=== PATIENT | male | born 1955 | race African-American/Black ===

== ENCOUNTER → 2018-05-10 | Outpatient (CLI) | payer OTHER ==
[~2018-05-10] VITALS: Ht 172.7 cm; Wt 79.4 kg
[~2018-05-10] MED LIST: HYDROCODON-ACE1 EAC7 PO; IBUPROFEN 400400 M2 PO
--- NOTE | ~2018-05-10 | HPC ---
[facility] [place] [address] [address] [place] [address] PAIN MANAGEMENT CONSULTATION Name: FREDIS COYLE [id number] Admission: 05/10/18 Attend Phys: Julito Velez DO Discharge: Date of : 55 Report #: [id number] THIS REPORT FOR: //name// CC: [facility] physician/PCP Julito Velez DATE OF SERVICE: 05/10/2018 CHIEF COMPLAINT: Left upper extremity pain. HISTORY OF PRESENT ILLNESS: As you know, the patient is a 62-year-old male who reports a 6-year history of upper extremity pain. He states that his pain began on the right, underwent cervical epidural injections x 3, which provided some benefit. His symptoms then began on the left side. The patient has undergone 1 cervical [address] injection with [address] Da Magana at the [place] [facility]. Apparently, this did not provide much in the way of improvement. The patient was sent for MRI, which does show some changes at the C4-C5 level, which shows neural foraminal compromise, worse on the right than the left. Otherwise, relatively normal MRI. The patient was referred to our service to discuss options for treatment for cervical radiculopathy. The patient describes the pain as steady. Indicates pain is shooting, crushing, pulling, numbness and tingling, squeezing in sensation. Places current pain score at 8/10, daily average at 8/10, worst the pain has been is 10/10. The patient states his pain is exacerbated with lifting anything, lying on his left side or utilizing his left upper extremity. He states the only thing that improves his symptoms is "holding his arm up high." He has been referred to our service to discuss options for cervical radiculopathy treatment. PAST MEDICAL HISTORY: 1. Emotional problems. 2. Uncontrolled hypertension. PAST SURGICAL HISTORY: None. SOCIAL HISTORY: The patient denies tobacco, alcohol, IV or illicit drug use. 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 He is working, not receiving workmen's compensation. He is not on disability income in regards to pain. He is not in litigation in regards to his symptoms. REVIEW OF SYSTEMS: Positive for depression, left arm pain. All other review of systems is negative per 12-point review of systems other than those listed in history of present illness. Pain impact score 59/70, severe interference of daily activities secondary to pain. [facility] [address] [place] [address] PAIN MANAGEMENT CONSULTATION Name: SAJAN ANTONFREDIS MARCE Room #: REG LUCIA Guzman#: [id number] Admission: 05/10/18 Attend Phys: Julito Velez DO Discharge: Date of : 55 Report #: [id number] ALLERGIES: No known drug allergies. CURRENT MEDICATIONS: None reported. IMAGING: MRI of cervical spine shows alignment has changed since 2014 more kyphotic centered at the C4-C5 level. There is anterior epidural defects at C2-C3, C3-C4, C4-C5, C5-C6, C6-C7 due to osteophyte disk complexes. A larger single lesion is asymmetric at the C6-C7 level. They have gotten larger. Noted C4-C5 disk reduction, both foraminal compromise, worse on the right. There is a C5 compression deformity, has gotten worse since 2015. PHYSICAL EXAMINATION: VITAL SIGNS: Blood pressure 156/101, pulse 65, respiratory rate 16 and unlabored. The patient is 100% on room air. Height 5 feet 8 inches tall, weight 175 pounds, BMI calculated 26.6. GENERAL: Well-developed, well-nourished, well-hydrated 62-year-old male, appears stated age. He is in mild distress secondary to pain, placing current pain score at 8/10. HEENT: Normocephalic, atraumatic. Pupils equal, round, reactive to light. Extraocular muscles are intact. NEUROLOGIC: Speech fluent. The patient deemed a fair historian. LUNGS: Clear. No wheeze, rhonchi or rales. CARDIOVASCULAR: Regular. No appreciable gallop or rub. ABDOMEN: Soft, nontender, nondistended. EXTREMITIES: Show no clubbing, no cyanosis, no edema. MUSCULOSKELETAL: Upper extremity strength is symmetrical. Muscle bulk and tone appears symmetrical grossly when viewing left to right side. He has a negative Spurling's test on the left and right. Movement of the upper arm causes intensification of pain, distribution is in the proximal and distal portion of the arm all the way into the hand. Deep tendinous reflexes are symmetrical, diminished bilaterally at biceps, brachioradialis and triceps. Cervical provocation testing is met with no significant changes in pain. ASSESSMENT: 1. Cervical radiculopathy. 2. Displacement of cervical intervertebral disk with radiculopathy. 3. Cervical spondylosis with radiculopathy. 4. Neural foraminal stenosis of the cervical spine. 5. Chronic intractable pain. PLAN: 1. The patient has been referred to our service. Discussed options for treatments for cervical radiculopathy. The patient at this point has no cervical pain at all. Spurling's test is actually negative. There are what appears to be cervical radicular symptoms radiating into the left upper [address] [address] PAIN MANAGEMENT CONSULTATION Name: FREDIS COYLE Room #: REG CLFaye Rapp#: [id number] Admission: 05/10/18 Attend Phys: Julito Velez DO Discharge: Date of : 55 Report #: [id number] extremity given the distribution of symptoms. We discussed the findings on his MRI, which does show some neural foraminal compromise. There is likely the source of the patient's symptoms. The patient and I discussed the options for treatment here today. These were the following treatment options proposed. The patient and I discussed physical therapy, stretching exercises and traction techniques. We discussed medication management with neuropathic medications that [facility]. We discussed cervical epidural injection for which the patient was referred to our service and ultimately surgical options. The patient chose to begin with a cervical epidural injection, but indicates he cannot undergo the procedure today. He requested that we provide him "with opioid." The patient and I had a long discussion today about the use of opioids and medication management for chronic pain. I do not feel opioids are an appropriate treatment option and will not be provided long-term. We will give the patient a short dosing of medication for the next week as we await the epidural injection on Wednesday. I would not recommend continuation of opioid medications as they are not indicated for radicular symptoms. We did discuss more appropriate medications. He states he has been on all of them and they have not worked. If this is the case, then surgical options may be his only recourse. 2. The patient will see us back in clinic in 1 week. We will perform a cervical epidural injection per the request of the referring physician. We will determine if his symptoms are amenable to such procedures. If he is not noting good and prolonged benefit with this epidural injection, surgical referral would be recommended. 3. The patient was provided a one-time dose of hydrocodone 5/325 one tab p.o. q.6h. p.r.n. for pain, I have given the patient #30 tablets, advised the patient to take the medication only when pain is intolerable. He is not to drive or operate heavy equipment while on this medication. He is to watch for side effects with its use. 4. We will see the patient back in followup visit in 1 week for cervical epidural injection per the referring physician's request. 5. We wish to thank you for the opportunity to see the patient in consultation. We will keep you apprised of his response to treatment as we address cervical radicular symptoms, suspected to be affecting the left upper extremity. Again, we wish to thank you for the opportunity to see the patient in consultation. <ELECTRONICALLY SIGNED> By: Julito Velez DO 05/12/18 0817 [id number] 1808 Julito Velez DO /nt
[2018-05-10 09:18] VITALS: BP 156/101
== END ==
LOC: PAIN 06:54
DX: M47.22 Other spondylosis with radiculopathy, cervical region (principal); M50.123 Cervical disc disorder at C6-C7 level with radiculopathy; M48.02 Spinal stenosis, cervical region; G89.4 Chronic pain syndrome

== ENCOUNTER → 2018-06-14 | Outpatient (CLI) | payer OTHER ==
[~2018-06-14] VITALS: Ht 172.7 cm; Wt 80.7 kg
--- NOTE | ~2018-06-14 | HPC ---
[facility] [address] [address] PAIN MANAGEMENT CONSULTATION Name: FREDIS COYLE Room #: REG LUCIA Tamela.#: [id number] Admission: 06/14/18 Attend Phys: Julito Velez DO Discharge: Date of : 55 Report #: [id number] THIS REPORT FOR: //name// CC: FAM physician/PCP Julito Magana REFERRING PHYSICIAN: Dr. Da Magana. CHIEF COMPLAINT: Neck pain, left upper extremity pain and paresthesias. HISTORY OF PRESENT ILLNESS: As you know, the patient is a 62-year-old male with a 6-year history of left upper extremity pain and chronic neck pain. He has had complete resolution of his right upper extremity pain and right neck pain with previous epidural injection. He returns today with a significant improvement in his left upper extremity pain as well. He continues to experience pain with increasing activity. He returns today to begin the process of preauthorization to undergo next in the series of cervical epidural injections. He indicates that his pain level today is at a level of 4/10, states the pain is exacerbated with activities and heavy lifting and exercise, improves with holding his arm up in the air. This and a cervical epidural injection provided improvement. He returns today in followup visit to begin the authorization process to undergo next in the series of cervical epidural injections. ALLERGIES: No known drug allergies. CURRENT MEDICATIONS: Ibuprofen, hydrocodone. SOCIAL HISTORY: The patient denies tobacco, alcohol, IV or illicit drug use. 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 He is working, not receiving workmen's compensation, unaccompanied today. IMAGING: No new imaging available. PHYSICAL EXAMINATION: VITAL SIGNS: Blood pressure 155/107, pulse 66, respiratory rate 14 and unlabored. The patient is 98% on room air. Height 5 feet 8 inches tall, weight 178 pounds, BMI calculated 27.1. GENERAL: Well-developed, well-nourished, well-hydrated, 62-year-old male. He appears his stated age, placing current pain score around 4/10. HEENT: Normocephalic, atraumatic. Pupils equal, round, reactive to light. Extraocular muscles are intact. Sclerae are nonicteric without injection. NEUROLOGIC: Cranial nerves 2-12 grossly intact. Speech remains fluent. EXTREMITIES: Show no clubbing, no cyanosis, no edema. MUSCULOSKELETAL: Upper extremity strength appears symmetrical 5/5. Slight giveaway strength noted with biceps flexion on the left when compared to the [facility] [address] [place] [address] PAIN MANAGEMENT CONSULTATION Name: FREDIS COYLE Room #: REG [facility]#: [id number] Admission: 06/14/18 Attend Phys: Julito Velez DO Discharge: Date of : 55 Report #: [id number] right. This is due to pain generation. Deep tendon reflexes are diminished bilaterally in the upper extremities and biceps, brachialis and triceps. Cervical provocation testing is met with increasing pain. Spurling's test positive left. Muscle bulk and tone appears equal and symmetrical in comparing left upper extremity to right. ASSESSMENT: 1. Cervical radiculopathy. 2. Displacement of cervical intervertebral disk with radiculopathy. 3. Cervical spondylosis with radiculopathy. 4. Neural foraminal stenosis of the cervical spine. 5. Chronic intractable pain. PLAN: 1. The patient returns today in followup visit having noted complete resolution of his right upper extremity and right neck pain. He continues to experience a squeezing sensation in the left upper extremity, but this is improved from the previous epidural injection. He returns to begin the authorization process to undergo the next in the series of cervical epidural injections. He is attempting to avoid surgery, which has been advised by other physicians. He is hopeful that repeating epidural injection will improve his overall pain. We also discussed today about medication management changes. It appears the patient was on appropriate medication, but at doses that were subtherapeutic. We will discuss medication management again if necessary. He does wish to undergo epidural injection as quickly as possible. 2. The patient will return to our clinic next WednesdayJune 22 for a possible cervical epidural injection, we will begin the authorization process immediately. I have provided the patient with a release of work for next Wednesday to undergo the procedure and be able to go home after and rest and relax as we have noted that these injections tend to improve with decreasing activity postprocedure. We have made the patient an appointment, we will see him back at that time to undergo a cervical epidural injection. 3. No medication changes made at today's visit. The patient to continue current medical therapy as previously prescribed. 4. The patient will return to our clinic next Wednesday to undergo a cervical epidural injection under fluoroscopic guidance. <ELECTRONICALLY SIGNED> By: Julito Velez DO 06/21/18 1256 0822 0954 Julito Velez DO /nt
[2018-06-14 07:59] VITALS: BP 155/107
== END ==
LOC: PAIN 07:12
DX: M47.12 Other spondylosis with myelopathy, cervical region (principal); M50.10 Cervical disc disorder with radiculopathy, unspecified cervical region; M48.02 Spinal stenosis, cervical region; G89.4 Chronic pain syndrome; Z79.899 Other long term (current) drug therapy

== ENCOUNTER → 2018-06-28 | Outpatient (CLI) | payer OTHER ==
[~2018-06-28] VITALS: Ht 172.7 cm; Wt 80.9 kg
--- NOTE | ~2018-06-28 | HPC ---
[facility] [address] [address] [place] [address] PAIN MANAGEMENT CONSULTATION Name: FREDIS COYLE [facility] [id number] Admission: 06/28/18 Attend Phys: Julito Velez DO Discharge: Date of : 55 Report #: [id number] THIS REPORT FOR: //name// CC: [facility] physician/PCP Julito Magana MD DATE OF SERVICE: 06/28/2018 CHIEF COMPLAINT: Neck pain, left upper extremity pain and paresthesias. HISTORY OF PRESENT ILLNESS: As you know, the patient is a 62-year-old male with a 6-year history of left upper extremity pain with paresthesias and chronic neck pain. He had complete resolution of his right upper extremity pain with previous epidural injection. He returns today in followup visit requesting next in the series of epidural injections in hopes of improving pain further. He is placing his current pain score at 8/10. He returns to undergo second in the series of cervical epidural injections in hopes of pain improvement. The patient denies any new injury or trauma and no changes in medical history since our last visit. ALLERGIES: No known drug allergies. CURRENT MEDICATIONS: Ibuprofen and hydrocodone. SOCIAL HISTORY: The patient denies tobacco, alcohol, IV or illicit drug use. 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 He is working, not receiving workmen's compensation, unaccompanied today. IMAGING: No new imaging available. PHYSICAL EXAMINATION: VITAL SIGNS: Blood pressure 163/110, pulse is 68, respiratory rate 16 and unlabored. The patient is 98% on room air. Height 5 feet 8 inches tall, weight 178.4 pounds, BMI calculated 27. GENERAL: Well-developed, well-nourished, well-hydrated, 62-year-old male. He appears stated age, placing current pain score at 8/10. HEENT: Normocephalic, atraumatic. Pupils are equal, round, reactive to light. EXTREMITIES: Show no clubbing, no cyanosis, no edema. MUSCULOSKELETAL: Upper extremity strength appears equal and symmetrical 5/5. Slight giveaway strength noted with biceps flexion on left when compared to the right due to pain generation once again today. Deep tendinous reflexes are diminished bilaterally, but symmetrical at biceps, brachioradialis and triceps. Cervical provocation testing is met with increasing pain to the left. Spurling's test positive left. [facility] [address] [place] [address] PAIN MANAGEMENT CONSULTATION Name: SAJAN ANTONFREDIS ZHENG Room #: REG CLI Megan#: [id number] Admission: 06/28/18 Attend Phys: Julito Velez DO Discharge: Date of : 55 Report #: [id number] ASSESSMENT: 1. Cervical radiculopathy. 2. Displacement of cervical intervertebral disk with radiculopathy. 3. Cervical spondylosis with radiculopathy. 4. Neural foraminal stenosis of the cervical spine. 5. Essential hypertension. 6. Chronic intractable pain. PLAN: 1. The patient returns today in followup visit reporting pain score at 8/10. He has requested a repeat cervical epidural injection in hopes of building on success of previous intervention. The patient has been advised of the risks and the benefits of a second cervical epidural injection, states he understood and wished to proceed. 2. The patient's blood pressure noted to be elevated again today. Pressure today is 163/110. Previous blood pressure was 155/107. I have advised the patient to follow up with his PCP as quickly as possible and be initiated on an antihypertensive medication. The blood pressure that he has is not related to his ongoing pain issues. If this were the case, the patient's pulse rate, which would also be up and pulse last visit was 66, pulse today was 68, which would not correlate with a sympathetic outflow noted with acute pain issues. I believe that the patient will need initiation of antihypertensive medication to adjust for his dangerously elevated blood pressure, which is at 163/110 today. The patient needs to follow up with his PCP immediately. 3. We will see the patient back in followup visit on an as needed basis for the next in the series of cervical epidural injections and discuss other treatment options for cervical radiculopathy. PROCEDURE NOTE: DESCRIPTION OF PROCEDURE: DESCRIPTION OF PROCEDURE: Cervical epidural steroid injection under fluoroscopic guidance. After obtaining written consent, the patient was taken back to fluoroscopy suite, placed in a prone position with separate pillows under chest and forehead to decrease cervical lordosis. Skin overlying cervical area then prepped and draped in aseptic fashion. C7-T1 cervical interspace identified by AP fluoroscopy. Skin and subcutaneous tissue overlying target site injection anesthetized with 3 mL of 1% lidocaine. A 20-gauge 3-1/2 inch Tuohy needle advanced under fluoroscopic guidance towards the epidural space using a midline approach. Epidural space identified using loss of resistance to air technique. After negative aspiration for heme or cerebrospinal fluid, 1 mL of Omnipaque injected. A cervical epidurogram was [facility] [address] [place] [address] PAIN MANAGEMENT CONSULTATION Name: FREDIS COYLE Room #: REG LUCIA Guzman#: [id number] Admission: 06/28/18 Attend Phys: Julito Velez DO Discharge: Date of : 55 Report #: [id number] confirmed using both AP and lateral fluoroscopy. After negative aspiration for heme or cerebrospinal fluid, 5 mL of a solution containing 2 mL 40 mg per mL, 80 mg total triamcinolone, 3 mL lidocaine 1% injected slowly. Needle retracted long term, flushed with 1 mL of 1% lidocaine and removed. Sterile bandage placed over injection site. No new motor deficits present in the upper extremity following procedure. The patient tolerated procedure well, carefully escorted to recovery room in stable condition. No apparent complication. After meeting discharge criteria, the patient discharged home. <ELECTRONICALLY SIGNED> By: Julito Velez DO 06/29/18 1542 0815 0947 Julito Velez DO /nt
[2018-06-28 14:08] VITALS: BP 163/110
== END | disposition home or self-care (01) ==
LOC: PAIN 06-22 06:39
DX: M50.10 Cervical disc disorder with radiculopathy, unspecified cervical region (principal); M47.22 Other spondylosis with radiculopathy, cervical region; G89.29 Other chronic pain; M48.02 Spinal stenosis, cervical region; I10 Essential (primary) hypertension; Z79.891 Long term (current) use of opiate analgesic; Z98.890 Other specified postprocedural states

== ENCOUNTER 2018-08-11 11:12 | Emergency (ER) | payer OTHER ==
[~2018-08-11] VITALS: Ht 172.7 cm; Wt 78.9 kg
[2018-08-11 11:13] VITALS: BP 145/93
[2018-08-11] MEDS ORDERED: NORCO 5-325 TA1 EACH PO ×2 (11:47→12:03)
== END 2018-08-11 12:10 | disposition home or self-care (01) ==
LOC: ER 11:12
DX: M54.12 Radiculopathy, cervical region (principal); I10 Essential (primary) hypertension; G89.29 Other chronic pain; M79.602 Pain in left arm

== ENCOUNTER → 2018-09-14 | Outpatient (CLI) | payer OTHER ==
[~2018-09-14] VITALS: Ht 172.7 cm; Wt 80.4 kg
[~2018-09-14] MED LIST changes: +NORCO 5-325 TA1 EACH PO
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
[2018-09-14 08:29] VITALS: BP 161/98
== END ==
LOC: PAIN 08:14
DX: M47.22 Other spondylosis with radiculopathy, cervical region (principal); G89.4 Chronic pain syndrome; M48.02 Spinal stenosis, cervical region; I10 Essential (primary) hypertension

== ENCOUNTER → 2018-09-27 | Outpatient (CLI) | payer OTHER ==
[~2018-09-27] VITALS: Ht 172.7 cm; Wt 80.7 kg
[~2018-09-27] MED LIST changes: +NOHOMEMEDICATIONS
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
[2018-09-27 08:52] VITALS: BP 165/91
--- NOTE | 2018-09-27 09:10 | NUR ---
Pain Clinic Assessment: 1. History of Osteoarthritis: Not Applicable History of Rheumatoid Arthritis: Not Applicable 2. Height: 5 ft. 8 in. 172.7 cm. Weight: 177.8 lb. oz. 80.650 kg. Patient's BMI: 27.0 3. Vital Signs: BP: 165/91 Pulse: 66 Resp: 20 Temp: 02 Sat: 99 ECG Mon: 4. Pain Intensity: 9 5. Fall Risk: Dizziness: N Needs help standing or walking: N Fallen in the last 3 months: N Fall risk comments: 6. Patient on Blood Thinner: None 7. History of Hypertension: N 8. Opioid Therapy greater than 6 weeks: N Opiate Contract Signed: 9. Risk Assessment Tool Provided: LOW RISK 0/3 10. Functional Assessment Tool: 67/70 11. Recreational Drug Use: Past greater than 3 mos Drug Type: Tobacco Use: Never Smoker Tobacco Type: Amount or Packs/day: How Many Years: Alcohol Use: No Frequency: Quant:
== END | disposition home or self-care (01) ==
LOC: PAIN 07:22
DX: M50.10 Cervical disc disorder with radiculopathy, unspecified cervical region (principal); M47.22 Other spondylosis with radiculopathy, cervical region; M48.02 Spinal stenosis, cervical region; G89.29 Other chronic pain

== ENCOUNTER → 2019-05-31 | Outpatient (CLI) | payer OTHER ==
[~2019-05-31] VITALS: Ht 172.7 cm; Wt 79.7 kg
--- NOTE | ~2019-05-31 | HPC ---
[facility] [address] [place] [address] PAIN MANAGEMENT CONSULTATION Name: FERDIS COYLE Room #: REG LUCIA Tamela.#: [id number] Admission: 05/31/19 ������������������ Attend Phys: Julito Velez DO Discharge: ������������������ Date of : 55 Report #: [id number] THIS REPORT FOR: //name// CC: Dr. Clements [facility] physician/PCP Julito Magana MD DATE OF SERVICE: 05/31/2019 REFERRING PHYSICIANS: Dr. Da Magana at the [place] system and Dr. Clements at the [place] system. CHIEF COMPLAINT: Neck pain, left upper extremity pain and paresthesias. HISTORY OF PRESENT ILLNESS: As you know, the patient is a 63-year-old male with a 7-year history of neck pain, left upper extremity pain with paresthesias. He returns today in followup visit to undergo next in the series of cervical epidural injections. He has been advised by Neurosurgery with the [place] system that he will need to undergo surgery to correct his ongoing pain issues. The patient is hopeful to delay that surgical option if at all possible. He returns today in followup visit requesting to undergo cervical epidural injection to address neck pain, left upper extremity pain with paresthesias that he places pain level at 8/10. He indicates that his prior injections "were the most painful thing he has ever done." The patient does return today in followup visit stating his pain is intense enough that he is willing to undergo the procedure today. He returns with pain level of 8/10. He denies any changes in medical history other than progression of his neck and left upper extremity pain since our last visit. ALLERGIES: No known drug allergies. CURRENT MEDICATIONS: Listed as none. SOCIAL HISTORY: The patient denies tobacco, alcohol, IV or illicit drug use. He is employed, working, not receiving workmen's compensation, unaccompanied today. IMAGING: No new imaging available. PHYSICAL EXAMINATION: VITAL SIGNS: Blood pressure 144/96, pulse 61, respiratory rate 14 and unlabored. The patient is 100% on room air. Height 5 feet 8 inches tall, weight 175.6 pounds and BMI calculated 26.7. GENERAL: Well-developed, well-nourished, well-hydrated 63-year-old male appearing stated age. He is in no acute distress, awake, alert and oriented x [address] [address] PAIN MANAGEMENT CONSULTATION Name: FREDIS COYLE Room #: REG [facility].#: [id number] Admission: 05/31/19 ������������������ Attend Phys: Julito Velez DO Discharge: ������������������ Date of : 55 Report #: [id number] 3. Current pain score /10. HEENT: Normocephalic, atraumatic. Pupils equal, round and reactive to light. Extraocular muscles are intact. Sclerae nonicteric, without injection. EXTREMITIES: Show no clubbing, no cyanosis, no edema. MUSCULOSKELETAL: Upper extremity strength is symmetrical, though he does have some giveaway strength noted again today mainly with biceps flexion and abduction of the left shoulder. Deep tendon reflexes are diminished bilaterally, but symmetrical at biceps, brachioradialis and triceps. Spurling's test positive left. ASSESSMENT: 1. Cervical radiculopathy. 2. Displacement of a cervical intervertebral disk with radiculopathy. 3. Cervical spondylosis with radiculopathy. 4. Neural foraminal stenosis of the cervical spine. 5. Chronic intractable pain. PLAN: 1. The patient has returned today in followup visit to undergo next in the series of cervical epidural injections under fluoroscopic guidance. The patient receives benefit with cervical epidural injections, the most recent injection provided 80% improvement in overall pain lasting for 4 months, yet the patient indicates that these are "the most painful injections he has never undergone." Despite the fact that these are uncomfortable to undergo, he has returned to undergo next in the series of epidural injections as he is trying to decrease need for surgical options, which have been presented to the patient as a definitive treatment course. He returns today to undergo the procedure. The patient has been advised risks and benefits of a cervical epidural injection. These risks include but are not necessarily limited to bleeding, bruising, infection, worsening pain, no relief of pain, also risk of temporary or permanent muscle weakness, temporary or permanent nerve damage, possible paralysis, post-dural puncture headache and . The patient states understood and wished to proceed. 2. We will see the patient back in followup visit on an as needed basis for possible next in a series of cervical epidural injections. We recommend the patient follow up with his PCP in regards to any medication management if necessary. PROCEDURE NOTE DESCRIPTION OF PROCEDURE: C7-T1 cervical epidural steroid injection under fluoroscopic guidance. This is the first procedure of the second series that the patient is undergoing. After obtaining written consent, the patient was taken back to the fluoroscopy [address] [address] PAIN MANAGEMENT CONSULTATION Name: FREDIS COYLE Room #: WERNER Guzman#: [id number] Admission: 05/31/19 ������������������ Attend Phys: Julito Velez DO Discharge: ������������������ Date of : 55 Report #: [id number] suite and placed in a prone position with separate pillows under chest and forehead to decrease cervical lordosis. The skin overlying the cervical area was prepped and draped in an aseptic fashion. The C7-T1 vertebral interspace was identified by AP fluoroscopy. The skin and subcutaneous tissue overlying the target site of injection was anesthetized using 3 mL of 1% lidocaine. A 20-gauge 3.5 inch Tuohy needle was advanced under fluoroscopic guidance toward the epidural space using a left paramedian approach. The epidural space was identified using a loss of resistance to air technique. After negative aspiration for heme or cerebrospinal fluid, a total of 1 mL of Omnipaque was injected. A cervical epidurogram was confirmed using AP and oblique fluoroscopy. After negative aspiration for heme or cerebrospinal fluid, 5 mL of a solution containing 2 mL 40 mg/mL, 80 mg total triamcinolone along with 3 mL of lidocaine 1% was injected in increments. Contrast spread was noted from posterior epidural space. The needle was then retracted approximately care home and the needle track was flushed with 1 mL of 1% lidocaine. There were no apparent new sensory deficits in the upper extremities present following the procedure. A sterile bandage was placed over the injection site. The heart rate, pulse oximetry and blood pressure were continuously monitored after the procedure. There were no apparent complications. The patient tolerated the procedure well and was carefully escorted in the recovery room in stable condition. After meeting discharge criteria, the patient was discharged home. ��������������������������������������������� ���������������������������������������� By: ��������������������������������������������� [id number] [id number] Julito Velez DO /nt
[2019-05-31 11:18] VITALS: BP 144/96
--- NOTE | 2019-05-31 11:40 | NUR ---
Pain Clinic Assessment: 1. History of Osteoarthritis: Not Applicable History of Rheumatoid Arthritis: Not Applicable 2. Height: 5 ft. 8 in. 172.7 cm. Weight: 175.6 lb. oz. 79.652 kg. Patient's BMI: 26.7 3. Vital Signs: BP: 144/96 Pulse: 61 Resp: 14 Temp: 02 Sat: 100 ECG Mon: 4. Pain Intensity: 8 5. Fall Risk: Dizziness: N Needs help standing or walking: N Fallen in the last 3 months: N Fall risk comments: 6. Patient on Blood Thinner: None 7. History of Hypertension: N 8. Opioid Therapy greater than 6 weeks: N Opiate Contract Signed: 9. Risk Assessment Tool Provided: LOW RISK 0/3 10. Functional Assessment Tool: 67/70 11. Recreational Drug Use: Past greater than 3 mos Drug Type: Tobacco Use: Never Smoker Tobacco Type: Amount or Packs/day: How Many Years: Alcohol Use: No Frequency: Quant:
== END | disposition home or self-care (01) ==
LOC: PAIN 05-23 08:40
DX: M50.10 Cervical disc disorder with radiculopathy, unspecified cervical region (principal); M47.22 Other spondylosis with radiculopathy, cervical region; M48.02 Spinal stenosis, cervical region; G89.29 Other chronic pain; Z98.890 Other specified postprocedural states

== ENCOUNTER 2019-06-23 01:33 | Inpatient (IN) | payer OTHER ==
[2019-06-23] VITALS (7 sets, daily range): BP systolic 105–173; BP diastolic 62–114
[~2019-06-23] VITALS: Ht 175.3 cm; Wt 78.0 kg
[2019-06-23 02:37] LABS: HEMOGLOBIN 14.8 gm/dL (14.0-18.0); MCH 31.2 pg (26.0-34.0); MCHC 32.2 g/dL (28.0-37.0); MCV 96.9 fL (80.0-100.0); PLATELET COUNT 127 thou/uL (150-400); RBC 4.75 mil/uL (4.50-6.00); RDW 13.5 % (10.5-14.5); WBC 4.8 thou/uL (4.0-11.0)
[2019-06-23 02:40] LABS: ANION GAP 10 mmol/L (7-16); BUN 7 mg/dL (7-18); CALCIUM 8.4 mg/dL (8.5-10.1); CHLORIDE 108 mmol/L (98-107); CO2 26 mmol/L (21-32); CREATININE 0.8 mg/dL (0.7-1.3); GLUCOSE 129 mg/dL (74-106); POTASSIUM 3.5 mmol/L (3.5-5.1); SODIUM 144 mmol/L (136-145)
[2019-06-23 02:41] LABS: PROTIME 10.7 Seconds (9.3-11.4)
[2019-06-23 02:51] LABS: ALBUMIN 3.4 g/dL (3.4-5.0); MAGNESIUM 1.9 mg/dL (1.8-2.4); SGOT 28 U/L (15-37); SGPT 27 U/L (30-65); TOTAL BILIRUBIN 0.7 mg/dL (<0.1-1.0); TOTAL PROTEIN 6.7 g/dL (6.4-8.2); TROPONIN-I <0.06 ng/mL (<0.06)
[2019-06-23 03:07] LABS: ABSOLUTE NEUTROPHILS 1.9 thou/uL (1.4-8.2)
[2019-06-23 03:08] LABS: ANISOCYTOSIS 1+; PLATELET ESTIMATE DECREASED; POIKILOCYTOSIS 1+
[2019-06-23 06:42] LABS: CHOLESTEROL 179 mg/dL (<200); HDL CHOLESTEROL 101 mg/dL (>40); LDL CHOLESTEROL 58 mg/dL (<100); TC:HDL 1.8 Ratio (Not establshd); TRIGLYCERIDE 100 mg/dL (<150); VLDL 20 mg/dL (<40)
[2019-06-23 06:43] LABS: SERUM ASSESSMENT Clear
--- NOTE | 2019-06-23 07:29 | NUR ---
ADMIT:PT ADMITTED FROM ED WITH CHEST PAIN.ARRIVED TO UNIT VIA STRETCHER ACCOMPANIED BY HIS .PT IS A/OX4 IN A LOT OF DISTRESS.HYPERTENSIVE UPON ARRIVAL TO UNIT,HYDRALAZINE GIVEN PER ORDERS.RA W/O RESP DISTRESS.SINUS RHYTHM ON MONITOR.PT KEEPS HAVING SEVERE INTERMITTENT SHARP CHEST PAIN THAT DOES NOT RADIATES OR ACCOMPANIED BY ANY OTHER ISSUES.PT STATES PAIN COMES AND GOES.CTA W/CONTRAST ORDERED BY CERTIFIED PHLEBOTOMY TECHNICIAN.PT DENIES H/O OF CHEST PAIN BUT DO HAVE A VERY STRONG FAMILY HISTORY OF CAD.DENIES CURRENTLY TAKING ANY MEDICATION APART FROM STEROIDS INJECTIONS D/T PAIN IN HIS NECK AND LEFT ARM.IVF INFUSING.PT AND FAMILY ORIENTED TO UNIT AND UNIT ACTIVITIES.ASSESSMENT COMPLETED DOCUMENTED.PT DENIES ANY OTHER CONCERNS AT THIS TIME.PT NPO.
--- NOTE | 2019-06-23 08:59 | NUR ---
ASSUMED CARE AT 0830. SEE ASSESSMENT. HAVING INTERMITTENT MIDSTERNAL BRIEF SHARP PAIN, RESOLVES WITHIN A MINUTE WITH RELAXATION. AT BEDSIDE.
--- NOTE | 2019-06-23 11:09 | 2DMMODE ---
[facility] [address] [email or web address] [address] 2 D/M-MODE ECHOCARDIOGRAM Name: SAJAN FREDIS ANTON Room #: 218-P ADM IN M.R.#: [id number] Admission: 06/23/19 Attend Phys: Fabian Germain MD Discharge: Date of : 55 Report #: [id number] THIS REPORT FOR: //name// APPROVED REPORT Study performed: 06/23/2019 10:20:28 EXAM: Comprehensive 2D, Doppler, and color-flow Echocardiogram Patient Location: Bedside Room #: 218 Status: routine BSA: 1.94 HR: 69 bpm BP: 166/106 mmHg Rhythm: Sinus arrhythmia Other Information Study Quality: Good Indications Chest Pain HTN 2D Dimensions RVDd: 34.11 mm IVSd: 12.00 (7-11mm) LVOT Diam: 24.00 (18-24mm) LVDd: 48.00 mm PWd: 11.00 (7-11mm) Ascending Ao: 40.10 (22-36mm) LVDs: 29.00 (25-40mm) Aortic Root: 43.02 mm Volumes Left Atrial Volume (Systole) Single Plane 4CH: 45.66 mL Single Plane 2CH: 49.50 mL LA ESV Index: 26.00 mL/m2 Aortic Valve AoV Peak Max.: 1.41 m/s AO Peak Gr.: 7.96 mmHg LVOT Max P.68 mmHg LVOT Max V: 1.08 m/s KETAN Vmax: 3.46 cm2 Mitral Valve E/A Ratio: 0.9 MV Decel. Time: 217.15 ms [facility] [address] [place] [address] 2 D/M-MODE ECHOCARDIOGRAM Name: FREDIS COYLE Room #: 218-P [facility] IN .R.#: [id number] Admission: 06/23/19 Attend Phys: Fabian Germain MD Discharge: Date of : 55 Report #: [id number] E Max Max.: 0.71 m/s MV A Max.: 0.83 m/s MV PHT: 62.97 ms IVRT: 92.27 ms Pulmonary Valve PV Peak Max.: 1.30 m/s PV Peak Gr.: 6.80 mmHg Pulmonary Vein P Vein S: 0.71 m/s P Vein A: 0.35 m/s P Vein D: 0.38 m/s P Vein A Dur.: 110.7 msec P Vein S/D Ratio: 1.87 Tricuspid Valve TR Peak Max.: 2.51 m/s RAP Estimate: 5.00 mmHg TR Peak Gr.: 25.29 mmHg PA Pressure: 30.00 mmHg Left Ventricle The left ventricle is normal size. There is normal LV segmental wall motion. Mild concentric left ventricular hypertrophy. Left ventricular systolic function is normal. LVEF is 60-65%. Mild diastolic dysfunction is present (impaired relaxation pattern). Right Ventricle The right ventricle is normal size. The right ventricular systolic function is normal. Atria The left atrium size is normal. The right atrium size is normal. Aortic Valve The aortic valve is normal in structure. No aortic regurgitation is present. There is no aortic valvular stenosis. Mitral Valve The mitral valve is normal in structure. There is no mitral valve regurgitation noted. No evidence of mitral valve stenosis. Tricuspid Valve The tricuspid valve is normal in structure. Trace tricuspid regurgitation. Estimated PAP is 30mmHg. Pulmonic Valve [facility] [address] [place] [address] 2 D/M-MODE ECHOCARDIOGRAM Name: FREDIS COYLE Room #: 218-P [facility] IN .R.#: [id number] Admission: 06/23/19 Attend Phys: Fabian Germain MD Discharge: Date of : 55 Report #: [id number] A circular echo density is identified which appears to be moving in conjunction with the pulmonic valve. It is not well characterized by this study. Transesophageal echo is recommended Mild pulmonic regurgitation. Great Vessels Aortic root is dilated at the level of the sinuses at 4.3cm. Ascending aorta is dilated at 4.1cm. IVC is normal in size and collapses >50% with inspiration. Pericardium There is no pericardial effusion. <Conclusion> The left ventricle is normal size. LVEF is 60-65%. The aortic valve is normal in structure. The mitral valve is normal in structure. The tricuspid valve is normal in structure. Trace tricuspid regurgitation. Estimated PAP is 30mmHg. Mild pulmonic regurgitation. Aortic root is dilated at the level of the sinuses at 4.3cm. Ascending aorta is dilated at 4.1cm. There is no pericardial effusion. A circular echo density is identified which appears to be moving in conjunction with the pulmonic valve. It is not well characterized by this study. Transesophageal echo is recommended <ELECTRONICALLY SIGNED> By: Hesham Donald MD 06/23/19 1108 1108 1108 Hesham Donald MD /INF
--- NOTE | 2019-06-23 16:30 | NUR ---
REMAINED NPO. AT 1015, ECHO PERFORMED AT BEDSIDE SINCE PT HAVING INTERMITTENT CHEST DISCOMFORT THIS AM. AT 1245, PT TRANSFERRED PER WHEELCHAIR TO NUCLEAR STRESS TEST. NOW CHEST DISCOMFORT LESS FREQUENT, DECREASED INTENSITY. SIGNIFICANT OTHER AT BEDSIDE PROVIDING SUPPORT.
[2019-06-24 00:27] VITALS: BP 110/63
[2019-06-24 05:00] VITALS: BP 124/70
--- NOTE | 2019-06-24 08:27 | NUR ---
RECEIVED PT'S CARE AROUND 1914; PT. AOX4; C/O PAIN 03/29; [facility] INTERMITENT PAIN; DURING ASSESSMENT C/O PAIN; 02/27; NO SUDDENLY; INTERMITENT-SHARP PAIN; HS MEDICATION GIVEN; D/C FLUIDS PER ORDER; EDUCATED ABOUT FALL PREVENTION; ST. UNDERSTANDING; EDUCATED ABOUT CALLING BEFORE STANDING FROM BED FOR THE FIRST TIME; [facility]. UNDERSTANDING; ABLE TO RES THROUGH THE NIGHT WITH EYES CLOSED AFTER 2300; PT. DID NOT VOID THROUGH THE NIGHT; PER NURSE AID; AT [address] "I WILL PEE AT MY ON TIME"; AT 0540 JUNIOR HIGH MATH TEACHER REQUESTED PT. TO VOID; PT. UPSET; USING PROFANITY; SHOUT AT NURSE "LEAVE SLEEP"; "YOU GUYS HAVE BEING AWAKE THE WHOLE NIGHT"; "I WANT TO REST"; EDUCATED ABOUT THE NEED TO KNOW VOIDING MEASUREMENT; REFUSED EDUCATION; REFUSED VOIDING; JUNIOR HIGH MATH TEACHER LEAVE THE ROOM; ASSESSMENT CHARGED; FOLLOWING POC; PASSED ON REPORT;
[2019-06-24] MEDS ORDERED: METOPROLOL SUCC25 M1 PO (08:40)
[2019-06-24] MEDS ORDERED: GABAPENTIN 100100 MG PO (08:41)
[2019-06-24] MEDS ORDERED: BENAZEPRIL HCL20 MG PO (08:41)
[2019-06-24] MEDS ORDERED: ASPIR 8181 MG PO (08:41)
[2019-06-24 08:44] VITALS: BP 138/85
[2019-06-24 08:55] VITALS: BP 138/85
[2019-06-24 09:16] LABS: URINE BILIRUBIN 1+ (Negative); URINE BLOOD NEGATIVE (Negative); URINE CLARITY CLEAR; URINE GLUCOSE-RANDOM* NEGATIVE (Negative); URINE KETONES NEGATIVE (Negative); URINE LEUKOCYTES-REFLEX NEGATIVE (Negative); URINE NITRITE-REFLEX NEGATIVE (Negative); URINE PROTEIN (DIPSTICK) NEGATIVE (Negative); URINE SPECIFIC GRAVITY 1.025 (1.005-1.035)
[2019-06-24 09:20] LABS: ICTOTEST (BILI CONFIRMATORY) Positive (Negative); URINE COLOR DARK YELLOW
--- NOTE | 2019-06-24 10:18 | NUR ---
ASSUMED CARE AT SHIFT CHANGE ALERT AND OREANTED X4. HE DENIES ANY CP OR DISCOMFORT. VSS AND SB @ 57 ON THE MONITOR. DISCHARGE AND MEDICATION INSTRUCTIONS GIVEN TO PATIENT, AND PATIENT DISCHARGED HOME.
--- NOTE | 2019-06-25 13:15 | EKG ---
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
--- NOTE | 2019-06-25 13:15 | EKG ---
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
[2019-06-26 13:46] LABS: GLYCOHEMOGLOBIN (HGB A1C) 5.9 % (4.8-5.6)
== END 2019-06-24 13:40 | disposition home or self-care (01) | DRG 74 ==
LOC: ER 01:33 → 2N 03:19 → EROBS 03:19 → 2N 04:12
PROVIDERS: Emergency Medicine; Nurse Practitioner Acute Care; Surgery Vascular Surgery; ADMIT Hospitalist
DX: M79.2 Neuralgia and neuritis, unspecified (principal); I16.0 Hypertensive urgency; M54.12 Radiculopathy, cervical region; I10 Essential (primary) hypertension; Z82.49 Family history of ischemic heart disease and other diseases of the circulatory system; Z80.1 Family history of malignant neoplasm of trachea, bronchus and lung; Z80.0 Family history of malignant neoplasm of digestive organs
CPT/HCPCS: 10081

== ENCOUNTER → 2019-11-07 | Outpatient (CLI) | payer OTHER ==
[~2019-11-07] VITALS: Ht 172.7 cm; Wt 80.5 kg
[~2019-11-07] MED LIST changes: +ASPIR 8181 MG PO; +ASPIR-LOW81 MG PO; +BENAZEPRIL HCL20 MG PO; +GABAPENTIN 100100 MG PO; +METOPROLOL SUCC25 M1 PO; +TOPROL XL25 MG PO
[2019-11-07 09:29] VITALS: BP 167/111
--- NOTE | 2019-11-07 09:40 | NUR ---
Pain Clinic Assessment: 1. History of Osteoarthritis: BACK NECK History of Rheumatoid Arthritis: Not Applicable 2. Height: 5 ft. 8 in. 172.7 cm. Weight: 177.4 lb. oz. 80.468 kg. Patient's BMI: 27.0 3. Vital Signs: BP: 167/111 Pulse: 68 Resp: 18 Temp: 02 Sat: 100 ECG Mon: 4. Pain Intensity: 10 5. Fall Risk: Dizziness: N Needs help standing or walking: N Fallen in the last 3 months: N Fall risk comments: 6. Patient on Blood Thinner: None 7. History of Hypertension: N 8. Opioid Therapy greater than 6 weeks: N Opiate Contract Signed: 9. Risk Assessment Tool Provided: LOW RISK 0/3 10. Functional Assessment Tool: 67/70 11. Recreational Drug Use: Past greater than 3 mos Drug Type: Tobacco Use: Never Smoker Tobacco Type: Amount or Packs/day: How Many Years: Alcohol Use: No Frequency: Quant:
--- NOTE | 2019-11-14 07:45 | HPC ---
[facility] [place] [address] PAIN MANAGEMENT CONSULTATION Name: SAJAN ANTONFREDIS ZHENG Room #: REG Faye Guzman#: [id number] Admission: 11/07/19 Attend Phys: Julito Velez DO Discharge: Date of : 55 Report #: [id number] THIS REPORT FOR: cc: [facility] - Clinic physician unknown [facility] - Clinic physician unknown Julito Velez DO ~ THIS REPORT FOR: //name// DATE OF SERVICE: 11/07/2019 CHIEF COMPLAINT: Back pain, bilateral lower extremity pain with paresthesias. HISTORY OF PRESENT ILLNESS: As you know, the patient is a 64-year-old male who has been referred back to our service by his neurosurgeon, Dr. Julito Clements, Neurosurgeon with the [facility] for evaluation for lumbar radiculopathy. The patient comes to us today with MRI, which shows critical spinal stenosis at the L4-L5 level with compression of the central canal to 4 mm. There are also noted changes at the L5-S1 level with small central disk protrusion with indentation of the thecal sac, causing close proximity of the left S1 nerve root. There are moderate degenerative changes noted at L4-L5 and L5-S1 level. The patient was referred to our clinic to undergo lumbar epidural injection under fluoroscopic guidance to address the ongoing pain issues the patient is experiencing. The patient also reports he is having sexual difficulty, but no significant weakness in the lower extremities to date. He is being evaluated for surgical decompression as this will likely be necessary given the severity of the findings at the L4-L5 level, but has been referred to our clinic to trial an epidural injection to determine if his pain can be improved as they await the surgical option. The patient denies injury or trauma that may have led to symptoms occurrence. ALLERGIES: No known drug allergies. CURRENT MEDICATIONS: Aspirin 81 mg per day, Lotensin 20 mg once a day, metoprolol 25 mg once a day. SOCIAL HISTORY: The patient denies tobacco, alcohol, IV or illicit drug use. He is employed, working, not receiving workmen's compensation, unaccompanied today. IMAGING: MRI of the lumbar spine obtained 08/22/2019 shows moderate degenerative changes at L4-L5 and L5-S1. There are changes at the L5-S1 level central disk extrusion indenting the thecal sac, causing proximity, but no direct impingement upon the left S1 nerve root. There is severe near critical central canal stenosis with AP diameter of the canal measuring [address] [address] PAIN MANAGEMENT CONSULTATION Name: FREDIS COYLE Room #: REG CL Megan#: [id number] Admission: 11/07/19 Attend Phys: Julito Velez DO Discharge: Date of : 55 Report #: [id number] PHYSICAL EXAMINATION: VITAL SIGNS: Blood pressure 167/111, pulse 68, respiratory rate 18 and unlabored. The patient is 100% on room air. Height 5 feet 8 inches tall, weight 177.4 pounds, and BMI calculated 27.0. GENERAL: Well-developed, well-nourished, well-hydrated 64-year-old male appearing stated age, pain is rated at 10/10. HEENT: Normocephalic, atraumatic. Pupils are equal, round, reactive to light. Extraocular muscles are intact. EXTREMITIES: Show no clubbing, no cyanosis, and no edema. MUSCULOSKELETAL: Lower extremity strength appears symmetrical 5/5. Muscle bulk and tone equal and symmetrical in comparing left lower extremity to right. Seated straight leg raising positive. Supine straight leg raising positive. Stacie's test is negative. Modified Gaenslen's positive for axial low back pain. Ankle clonus negative. Babinski is negative. The patient does appear to be intact to light touch from L1 through S2 dermatomes. They appear symmetrical. ASSESSMENT: 1. Critical spinal stenosis of the lumbar spine. 2. Lumbar radiculopathy. 3. Displacement of lumbar intervertebral disk with radiculopathy. 4. Lumbosacral spondylosis with radiculopathy. 5. Chronic intractable pain. PLAN: 1. The patient has returned today in followup visit per the request of his neurosurgeon, Dr. Clements at the [facility] to undergo a lumbar epidural injection to address the critical spinal stenosis at the L4-L5 level. The patient and I discussed at length the findings of his MRI. I advised the patient that symptoms may not be resolved with an epidural injection as critical spinal stenosis typically requires decompression. I do agree with trying conservative treatment options initially to determine if his symptoms will improve for the short term. We recommend the epidural injection requested. The patient has been advised risks and benefits of a lumbar epidural injection. These risks include, but are not necessarily limited to bleeding, bruising, infection, worsening pain, no relief of pain, also risk of temporary or permanent muscle weakness, temporary or permanent nerve damage, possible paralysis, post-dural puncture headache and . The patient states understood and wished to proceed. 2. The patient will need to follow up with Dr. Clements at his earliest convenience to discuss the options for the surgery that will be necessary at the L4-L5 level. Given the critical stenosis he is noted to have, there is a likelihood that his symptoms will progress typically followed closely from pain standpoint to weakness in the lower extremities. Further discussion of surgical decompression will be necessary. [address] [place] [address] PAIN MANAGEMENT CONSULTATION Name: SAJAN FREDIS ANTON Room #: REG [facility].#: [id number] Admission: 11/07/19 Attend Phys: Julito Velez DO Discharge: Date of : 55 Report #: [id number] 3. No medication changes made at today's visit. The patient will continue current medical therapy as prior prescribed. 4. We will see the patient back in followup visit on an as needed basis for possible next in the series of epidural injections. We will also discuss at that time what the plans from a surgical standpoint have been made. PROCEDURE NOTE DESCRIPTION OF PROCEDURE: L5-S1 interlaminar epidural steroid injection under fluoroscopic guidance. After obtaining written consent, the patient was taken back to fluoroscopy suite, placed in prone position with pillow under abdomen to decrease lumbar lordosis. Skin overlying lumbosacral area and then prepped and draped in aseptic fashion. Lumbar intervertebral spaces were identified by AP fluoroscopy. Skin and subcutaneous tissue overlying target site of injection and anesthetized with 3 mL of 1% lidocaine. A 20-gauge 3-1/2 inch Tuohy needle advanced under fluoroscopic guidance towards the epidural space using a parasagittal approach. Epidural space identified using loss of resistance to air technique. After negative aspiration for heme or cerebrospinal fluid, 1 mL of Omnipaque injected. Lumbar epidurogram confirmed using both AP and lateral fluoroscopy. After negative aspiration for heme or cerebrospinal fluid, 5 mL of a solution containing 2 mL 40 mg per mL, 80 mg total triamcinolone along with 3 mL lidocaine 1% injected slowly. Needle retracted approximately half way, flushed with 1 mL of 1% lidocaine and then removed. Sterile bandage placed over injection site. There were no new motor deficits present in the lower extremities following procedure. The patient tolerated the procedure well, carefully escorted to recovery room in stable condition. No apparent complications. After meeting discharge criteria, the patient discharged home. <ELECTRONICALLY SIGNED> By: Julito Velez DO 11/14/19 0745 1250 2339 Julito Velez DO /nt
== END | disposition home or self-care (01) ==
LOC: PAIN 06:48
DX: M51.16 Intervertebral disc disorders with radiculopathy, lumbar region (principal); G89.29 Other chronic pain; M48.061 Spinal stenosis, lumbar region without neurogenic claudication; M47.27 Other spondylosis with radiculopathy, lumbosacral region; Z98.890 Other specified postprocedural states; Z79.899 Other long term (current) drug therapy; Z79.82 Long term (current) use of aspirin; Z82.49 Family history of ischemic heart disease and other diseases of the circulatory system

== ENCOUNTER → 2020-04-07 | Emergency (ER) | payer OTHER | LOC: ER 09:28 | DX: R11.2 Nausea with vomiting, unspecified (principal); Z53.21 Procedure and treatment not carried out due to patient leaving prior to being seen by health care provider ==

== ENCOUNTER 2021-01-01 08:13 | Emergency (ER) | payer OTHER ==
[~2021-01-01] VITALS: Ht 172.7 cm; Wt 78.9 kg
[2021-01-01] MEDS ORDERED: FLEXERIL PO (09:33)
[2021-01-01] MEDS ORDERED: IBUPROFEN 800800 M1 PO (09:33)
[2021-01-01] MEDS ORDERED: LIDODERM1 EACH TOP (09:33)
[2021-01-01] MEDS ORDERED: NORCO5 PO (09:33)
[2021-01-01 10:10] VITALS: BP 164/103
== END 2021-01-01 10:12 | disposition home or self-care (01) ==
LOC: ER 08:13
DX: M54.5 Low back pain (principal); I10 Essential (primary) hypertension; Z79.82 Long term (current) use of aspirin; Z79.899 Other long term (current) drug therapy